=== PATIENT | male | born 1975 | race Two or more races ===

== ENCOUNTER 2018-01-02 01:28 | Emergency (ER) | payer MEDICAID ==
[~2018-01-02] VITALS: Ht 182.9 cm; Wt 86.2 kg
--- NOTE | 2018-01-02 02:35 | NUR ---
TO BED 1 A 42 YO MALE PATIENT BIBSEL PT STATES " I WANT TO BE MEDICALLY CLEARED FOR SO.KARMEN SILVA." PATIENT WITH SUICIDAL IDEATION. VSS. NAD NOTED. SAFETY MEASURS IN PLACE. VERBAL SAFETY CONTRACT MADE WITH PATIENT.
[2018-01-02 02:56] LABS: BASOPHILS % (AUTO) 0.4 % (0.0-2.0); EOSINOPHILS % (AUTO) 8.3 % (0.0-6.0); HEMATOCRIT 41 % (39-51); HEMOGLOBIN 14.3 g/dL (13.5-17.5); LYMPHOCYTES # (AUTO) 2.7 /CMM (0.8-4.8); LYMPHOCYTES % (AUTO) 35.5 % (20.0-44.0); MEAN CORPUSCULAR HGB CONC 35 g/dl (31.0-36.0); MEAN CORPUSCULAR VOLUME 94 fL (80-96); MONOCYTES # (AUTO) 0.8 /CMM (0.1-1.30); MONOCYTES % (AUTO) 10.9 % (2.0-12.0); NEUTROPHILS # (AUTO) 3.4 /CMM (1.8-8.9); NEUTROPHILS % (AUTO) 44.9 % (43.0-81.0); PLATELET COUNT (AUTO) 179 /CMM (150-450); RDW COEFFICIENT OF VARIATION 12.6 (11.5-15.0); RED BLOOD CELL COUNT(AUTO) 4.36 MIL/uL (4.5-6.0); WHITE BLOOD COUNT (AUTO) 7.7 K/uL (4.3-11.0)
[2018-01-02 03:13] LABS: ALANINE AMINOTRANSFERASE 86 U/L (12-78); ALBUMIN 3.4 g/dL (3.4-5.0); ALCOHOL, BLOOD < 3 mg/dL (0-0); ALKALINE PHOSPHATASE 72 U/L (46-116); ASPARTATE AMINOTRANSFERASE 51 U/L (15-37); BILIRUBIN,TOTAL 0.3 mg/dL (0.2-1.0); CALCIUM, SERUM 8.6 mg/dL (8.5-10.1); CARBON DIOXIDE 28 mmol/L (21-32); CHLORIDE 107 mmol/L (98-107); CREATININE 0.8 mg/dL (0.6-1.3); GLUCOSE 103 mg/dL (74-106); POTASSIUM 4.2 mmol/L (3.5-5.1); SODIUM SERUM 142 mmol/L (136-145); TOTAL PROTEIN, SERUM 6.4 g/dL (6.4-8.2); UREA NITROGEN, BLOOD 13 mg/dL (7-18)
[2018-01-02 03:15] LABS: SALICYLATE 1.2 mg/dL (2.8-20.0)
--- NOTE | 2018-01-02 03:15 | NUR ---
PATIENT SLEEPING COMFORTABLY AT THIS TIME.
[2018-01-02 03:16] LABS: ACETAMINOPHEN < 2 ug/ml (10-30)
[2018-01-02 04:04] LABS: APPEARANCE,URINE CLEAR (CLEAR); BILIRUBIN,URINE NEGATIVE (NEGATIVE); BLOOD, URINE NEGATIVE Ery/uL (NEGATIVE); COLOR,URINE YELLOW (YELLOW); KETONES,URINE TRACE (NEGATIVE); LEUKOCYTE ESTERASE ,URINE NEGATIVE (NEGATIVE); NITRITE, URINE NEGATIVE (NEGATIVE); PROTEIN,URINE NEGATIVE (NEGATIVE); UGLUCOSE NEGATIVE (NEGATIVE)
[2018-01-02 04:41] LABS: BACTERIA,URINE None seen /HPF (None Seen); CALCIUM OXALATE CRYSTALS,UR Few /HPF (None Seen); RBC,URINE 0-2 /HPF (0-2); SQUAMOUS EPITHELIAL CELL,UR Few /HPF (None Seen); WBC,URINE 0-2 /HPF (0-3)
[2018-01-02 04:42] LABS: URINE AMORPHOUS PHOSPHATES Many /HPF (None Seen)
[2018-01-02 06:12] VITALS: BP 124/78
--- NOTE | 2018-01-02 06:35 | NUR ---
pt accepted to [facility] by dr Dean. # for report [phone]
--- NOTE | 2018-01-02 06:46 | NUR ---
[facility] called for transport. eta [id number]
--- NOTE | 2018-01-02 07:22 | NUR ---
Report given to Zarina BROWNE for transfer and simeon at [facility].
--- NOTE | 2018-01-02 07:27 | NUR ---
Endorsed care to Angie BROWNE.
== END 2018-01-02 07:52 ==
LOC: ER 01:41
DX: R45.851 Suicidal ideations (principal); F31.9 Bipolar disorder, unspecified; F15.10 Other stimulant abuse, uncomplicated; Z88.8 Allergy status to other drugs, medicaments and biological substances; Z86.19 Personal history of other infectious and parasitic diseases
CPT/HCPCS: 36415; 80048; 80076; 80305; 80329; 81001; 85025; 99285; A4606; G0480 ×2; Z7610; 81000-TC